=== PATIENT | female | born 1980 | race Caucasian/White ===

== ENCOUNTER 2016-09-10 11:03 | Emergency (ER) | payer BC, SELFPAY ==
[~2016-09-10 11:03] MED LIST: /ACETCOD2T PO; ACET50TA PO; BUSP10TA PO; CIPR500T89 PO; CITA40TA PO; CRANPOW2 PO; FLAG500T PO; FLUC10TA PO; IMIT50TA PO; KEPP500T6 PO; MICO PV; MICO2CRE39 EXT; MICO7CR PV; MIRA3350 PO; MULTCAP PO; NEUR600T PO; OXYC1SOL PO; PRIL20CA PO; SIME80TA PO; WELL100T PO; ZOFR4TAB3 PO
--- NOTE | 2016-09-10 11:45 | EDDOCDS ---
Nurse's Notes [facility] Name: Deidre Portillo Age: 36 yrs Sex: Female : 1980 Arrival Date: 09/10/2016 Time: 11:03 Bed Triage 1 Private MD: Other - Complete Info On Cds Diagnosis: Tinea corporis-under bilateral breasts Presentation: 09/10 11:09 Presenting complaint: Patient states: I have shingles again, rash under both breasts, cjh burning and pain. Adult Sepsis Screening: The patient does not have new or worsening altered mentation. Patient's respiratory rate is less than 22. Systolic blood pressure is greater than 100. Patient has a qSOFA score of 0- Negative Sepsis Screen. Suicide/Homicide risk assessment- the patient denies having any suicidal and/or homicidal ideations and does not present with any other emotional, behavioral or mental health complaints. 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 Transition of care: patient was not received from another setting of care. 11:09 Acuity: DELON Level 4 [facility] 11:09 Method Of Arrival: Walkin/Carried/Asstd [facility] Triage Assessment: 11:13 General: Appears uncomfortable, Behavior is anxious, cooperative. Pain: Location: [facility] diaphragm Pain currently is 7 out of 10 on a pain scale. HIV screening NA for this visit Offered previously. Respiratory: Airway is patent Respiratory effort is even, unlabored, Respiratory pattern is regular, symmetrical. Derm: Skin is pink, warm & dry. 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 BuSpar 10 mg Oral tab 1 tab 3 times per day 2. omeprazole 40 mg Oral cpDR 1 cap once daily 3. Zofran (as hydrochloride) 4 mg Oral tab 4 mg 4. Lamictal Unknown Oral 1 tab 2 times per day (Last dose: 09/10/2016 07:00) 5. unknown for depression Unknown nightly 6. amitriptyline 100 mg Oral tab 1 tab once daily 7. pregabalin 100 mg Oral cap 1 cap 3 times per day - PMHx: Cholecystitis; Chronic Functional Dyspepsia; Depression; Esophagitis; GERD; Migraine Headaches; - PSHx: Bunion Surgery; Hysterectomy; Tubes in ears; Appendectomy; Cholecystectomy; - Social history: Smoking status: Patient uses tobacco products, light tobacco smoker. No barriers to communication noted. - Family history: Not pertinent. - : The pt / caregiver states he / she is not on anticoagulants. Home medication list is obtained from the patient. - Exposure Risk Screening:: None identified. Screenin:14 Screening information is obtained from the patient. Fall risk: No risks identified. [facility] Assistance ADL's: requires no assistance with activities of daily living. Abuse/DV Screen: The patient / caregiver reports he/she is: not in a situation that causes fear, pain or injury. Nutritional screening: No deficits noted. Advance Directives: Currently, there is a health care proxy, Batool Velez, mother. There is no active DNR order. There is no living will. There is no Power of Medical Clerical Assistant. home support is adequate. Assessment: 11:42 General: Appears in no apparent distress, Behavior is cooperative. Neurological: Level jf3 of Consciousness is awake, alert, Oriented to person, place, time. Cardiovascular: Capillary refill < 3 seconds. Respiratory: Airway is patent Respiratory effort is even, unlabored, Respiratory pattern is regular, symmetrical. Derm: Reports rash under bilateral breats. Vital Signs: 11:06 BP 143 / 80 RA Sitting (auto/reg); Pulse 95 RA; Resp 18 S; Temp 97.9(O); Pulse Ox 100% nv4 on R/A; Weight 89.81 kg (R); Height 5 ft. 4 in. (162.56 cm) (R); Pain 7/10; 11:06 Body Mass Index 33.99 (89.81 kg, 162.56 cm) [facility] Vitals: 11:06 Log In Time: September 10, 2016 at 11:03. nv4 ED Course: 11:05 Patient visited by Franca Lam. [facility] 11:05 Patient moved to Waiting [facility] 11:06 Other - Complete Info On Cds is Private Physician. mt4 11:10 Triage Initiated [facility] 11:14 Patient moved to Triage 1 [facility] 11:24 [facility] 11:24 Steven Miguel MD is Attending Physician. [facility] 11:24 Patient visited by Mirtha Paulino PA-C. ef1 11:42 The patient / caregiver is instructed regarding the plan of care and ED course. jf3 11:42 No IV's were initiated during this patient's visit. No procedures done that require jf3 assistance. Order Results: There are currently no results for this order. Outcome: 11:35 Discharge ordered by Provider. ef1 11:42 Discharge Assessment: Patient awake, alert and oriented x 3. No cognitive and/or jf3 functional deficits noted. Patient verbalized understanding of disposition instructions. patient administered narcotics - no. The following High Risk Discharge criteria are identified: None. Discharged to home ambulatory. Condition: good. Discharge instructions given to patient, Instructed on discharge instructions, follow up and referral plans. medication usage, Demonstrated understanding of instructions, medications, Pt was receptive of discharge instructions/ teaching. No special radiology studies were completed. Property :Personal belongings accompany Pt. 11:44 Patient left the ED. jf3 Signatures: Franca Lam mt4 Mirtha Paulino PA-C PA-C ef1 Laila MarcialRN RN [facility] Gopi TsaiRN RN jf3 [facility]
--- NOTE | 2016-09-10 11:45 | EDDOCDS ---
Physician Documentation [facility] Name: Deidre Portillo Age: 36 yrs Sex: Female : 1980 Arrival Date: 09/10/2016 Time: 11:03 Bed Triage 1 Private MD: Jonny - Complete Info On Cds Disposition: 09/10/16 11:35 Discharged to Home/Self Care. Impression: Tinea corporis - under bilateral breasts. - Condition is Stable. - Discharge Instructions: Body Ringworm, Yeast Infection of the Skin, [id number]. - Prescriptions for Clotrimazole 1 % Topical Cream - apply to affected area 1 application by TOPICAL route every 12 hours for 14 days Apply under bilateral breasts.; 15 gram. - Medication Reconciliation, Local Pharmacy Hours form. - Follow up: Private Physician; When: 1 - 2 days; Reason: Recheck today's complaints, Continuance of care. Follow up: Emergency Department; Reason: Worsening of conditions. - Problem is new. - Symptoms are unchanged. Historical: - Allergies: Augmentin (Hives, Rash); NSAIDS (Upset stomach); Tramadol-Acetaminophen (Seizures); - Home Meds: 1. BuSpar 10 mg Oral tab 1 tab 3 times per day 2. omeprazole 40 mg Oral cpDR 1 cap once daily 3. Zofran (as hydrochloride) 4 mg Oral tab 4 mg 4. Lamictal Unknown Oral 1 tab 2 times per day (Last dose: 09/10/2016 07:00) 5. unknown for depression Unknown nightly 6. amitriptyline 100 mg Oral tab 1 tab once daily 7. pregabalin 100 mg Oral cap 1 cap 3 times per day - PMHx: Cholecystitis; Chronic Functional Dyspepsia; Depression; Esophagitis; GERD; Migraine Headaches; - PSHx: Bunion Surgery; Hysterectomy; Tubes in ears; Appendectomy; Cholecystectomy; - Social history: Smoking status: Patient uses tobacco products, light tobacco smoker. No barriers to communication noted. - Family history: Not pertinent. - : The pt / caregiver states he / she is not on anticoagulants. Home medication list is obtained from the patient. - Exposure Risk Screening:: None identified. 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 4 in. (162.56 cm) (R); Pain 02/27; 11:06 Body Mass Index 33.99 (89.81 kg, 162.56 cm) mt4 MDM: 11:41 Financial registration complete. Signatures: [place] Juarez, Reg Reg Mirtha Paulino PA-C PA-C ef1 Laila Marcial,RN RN cj Gopi Tsai,RN RN jf3 MTDD
--- NOTE | 2016-09-12 12:45 | EDDOCDS ---
Physician Documentation [facility] Name: Deidre Portillo Age: 36 yrs Sex: Female : 1980 Arrival Date: 09/10/2016 Time: 11:03 Bed Triage 1 Private MD: Jonny - Complete Info On Cds Disposition: 09/10/16 11:35 Discharged to Home/Self Care. Impression: Tinea corporis - under bilateral breasts. - Condition is Stable. - Discharge Instructions: Body Ringworm, Yeast Infection of the Skin, [id number]. - Prescriptions for Clotrimazole 1 % Topical Cream - apply to affected area 1 application by TOPICAL route every 12 hours for 14 days Apply under bilateral breasts.; 15 gram. - Medication Reconciliation, Local Pharmacy Hours form. - Follow up: Private Physician; When: 1 - 2 days; Reason: Recheck today's complaints, Continuance of care. Follow up: Emergency Department; Reason: Worsening of conditions. - Problem is new. - Symptoms are unchanged. Historical: - Allergies: Augmentin (Hives, Rash); NSAIDS (Upset stomach); Tramadol-Acetaminophen (Seizures); - Home Meds: 1. BuSpar 10 mg Oral tab 1 tab 3 times per day 2. omeprazole 40 mg Oral cpDR 1 cap once daily 3. Zofran (as hydrochloride) 4 mg Oral tab 4 mg 4. Lamictal Unknown Oral 1 tab 2 times per day (Last dose: 09/10/2016 07:00) 5. unknown for depression Unknown nightly 6. amitriptyline 100 mg Oral tab 1 tab once daily 7. pregabalin 100 mg Oral cap 1 cap 3 times per day - PMHx: Cholecystitis; Chronic Functional Dyspepsia; Depression; Esophagitis; GERD; Migraine Headaches; - PSHx: Bunion Surgery; Hysterectomy; Tubes in ears; Appendectomy; Cholecystectomy; - Social history: Smoking status: Patient uses tobacco products, light tobacco smoker. No barriers to communication noted. - Family history: Not pertinent. - : The pt / caregiver states he / she is not on anticoagulants. Home medication list is obtained from the patient. - Exposure Risk Screening:: None identified. 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 4 in. (162.56 cm) (R); Pain 7/10; 11:06 Body Mass Index 33.99 (89.81 kg, 162.56 cm) mt4 MDM: 11:41 Financial registration complete. lg 12:18 [facility] Payment Agreement was scanned into [employer] and attached to record. lg 14:46 T-Sheet-- Draft Copy was scanned into [employer] and attached to record. gb Signatures: Cheryl Nuno, Reg Reg gb [place] Juarez, Reg Reg lg Mirtha Paulino, ADALI BRO ef1 Laila Marcial,RN RN [facility] Gopi Tsai,RN RN jf3 The chart was reviewed and I authenticate all verbal orders and agree with the evaluation and treatment provided.Attachments: 12:18 [facility] Payment Agreement lg 14:46 T-Sheet-- Draft Copy gb Chart Complete MTDD
--- NOTE | 2016-09-12 12:45 | EDDOCDS ---
Nurse's Notes [facility] Name: Deidre Portillo Age: 36 yrs Sex: Female : 1980 Arrival Date: 09/10/2016 Time: 11:03 Bed Triage 1 Private MD: Other - Complete Info On Cds Diagnosis: Tinea corporis-under bilateral breasts Presentation: 09/10 11:09 Presenting complaint: Patient states: I have shingles again, rash under both breasts, cjh burning and pain. Adult Sepsis Screening: The patient does not have new or worsening altered mentation. Patient's respiratory rate is less than 22. Systolic blood pressure is greater than 100. Patient has a qSOFA score of 0- Negative Sepsis Screen. Suicide/Homicide risk assessment- the patient denies having any suicidal and/or homicidal ideations and does not present with any other emotional, behavioral or mental health complaints. 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 Transition of care: patient was not received from another setting of care. 11:09 Acuity: DELON Level 4 [facility] 11:09 Method Of Arrival: Walkin/Carried/Asstd [facility] Triage Assessment: 11:13 General: Appears uncomfortable, Behavior is anxious, cooperative. Pain: Location: [facility] diaphragm Pain currently is 7 out of 10 on a pain scale. HIV screening NA for this visit Offered previously. Respiratory: Airway is patent Respiratory effort is even, unlabored, Respiratory pattern is regular, symmetrical. Derm: Skin is pink, warm & dry. 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 BuSpar 10 mg Oral tab 1 tab 3 times per day 2. omeprazole 40 mg Oral cpDR 1 cap once daily 3. Zofran (as hydrochloride) 4 mg Oral tab 4 mg 4. Lamictal Unknown Oral 1 tab 2 times per day (Last dose: 09/10/2016 07:00) 5. unknown for depression Unknown nightly 6. amitriptyline 100 mg Oral tab 1 tab once daily 7. pregabalin 100 mg Oral cap 1 cap 3 times per day - PMHx: Cholecystitis; Chronic Functional Dyspepsia; Depression; Esophagitis; GERD; Migraine Headaches; - PSHx: Bunion Surgery; Hysterectomy; Tubes in ears; Appendectomy; Cholecystectomy; - Social history: Smoking status: Patient uses tobacco products, light tobacco smoker. No barriers to communication noted. - Family history: Not pertinent. - : The pt / caregiver states he / she is not on anticoagulants. Home medication list is obtained from the patient. - Exposure Risk Screening:: None identified. Screenin:14 Screening information is obtained from the patient. Fall risk: No risks identified. [facility] Assistance ADL's: requires no assistance with activities of daily living. Abuse/DV Screen: The patient / caregiver reports he/she is: not in a situation that causes fear, pain or injury. Nutritional screening: No deficits noted. Advance Directives: Currently, there is a health care proxy, Batool Velez, mother. There is no active DNR order. There is no living will. There is no Power of Chief Nursing Executive. home support is adequate. Assessment: 11:42 General: Appears in no apparent distress, Behavior is cooperative. Neurological: Level jf3 of Consciousness is awake, alert, Oriented to person, place, time. Cardiovascular: Capillary refill < 3 seconds. Respiratory: Airway is patent Respiratory effort is even, unlabored, Respiratory pattern is regular, symmetrical. Derm: Reports rash under bilateral breats. Vital Signs: 11:06 BP 143 / 80 RA Sitting (auto/reg); Pulse 95 RA; Resp 18 S; Temp 97.9(O); Pulse Ox 100% tx4 on R/A; Weight 89.81 kg (R); Height 5 ft. 4 in. (162.56 cm) (R); Pain 7/10; 11:06 Body Mass Index 33.99 (89.81 kg, 162.56 cm) [facility] Vitals: 11:06 Log In Time: September 10, 2016 at 11:03. tx4 ED Course: 11:05 Patient visited by Franca Lam. [facility] 11:05 Patient moved to Waiting [facility] 11:06 Other - Complete Info On Cds is Private Physician. mt4 11:10 Triage Initiated [facility] 11:14 Patient moved to Triage 1 [facility] 11:24 [facility] 11:24 Steven Miguel MD is Attending Physician. [facility] 11:24 Patient visited by Mirtha Paulino PA-C. ef1 11:42 The patient / caregiver is instructed regarding the plan of care and ED course. jf3 11:42 No IV's were initiated during this patient's visit. No procedures done that require jf3 assistance. 12:18 [facility] Payment Agreement was scanned into [employer] and attached to record. lg 14:46 T-Sheet-- Draft Copy was scanned into [employer] and attached to record. gb Order Results: There are currently no results for this order. Outcome: 11:35 Discharge ordered by Provider. ef1 11:42 Discharge Assessment: Patient awake, alert and oriented x 3. No cognitive and/or jf3 functional deficits noted. Patient verbalized understanding of disposition instructions. patient administered narcotics - no. The following High Risk Discharge criteria are identified: None. Discharged to home ambulatory. Condition: good. Discharge instructions given to patient, Instructed on discharge instructions, follow up and referral plans. medication usage, Demonstrated understanding of instructions, medications, Pt was receptive of discharge instructions/ teaching. No special radiology studies were completed. Property :Personal belongings accompany Pt. 11:44 Patient left the ED. jf3 Signatures: Cheryl Nuno, Reg Reg gb [place], Reg Reg lg [place], Franca mt4 Mirtha Paulino PA-C PA-C ef1 Laila Marcial,RN RN [facility] Gopi Tsai,RN RN jf3 Chart Complete MTDD
--- NOTE | 2016-09-12 12:45 | EDDOCDS ---
Physician Documentation [facility] Name: Deidre Portillo Age: 36 yrs Sex: Female : 1980 Arrival Date: 09/10/2016 Time: 11:03 Bed Triage 1 Private MD: Jonny - Complete Info On Cds Disposition: 09/10/16 11:35 Discharged to Home/Self Care. Impression: Tinea corporis - under bilateral breasts. - Condition is Stable. - Discharge Instructions: Body Ringworm, Yeast Infection of the Skin, [id number]. - Prescriptions for Clotrimazole 1 % Topical Cream - apply to affected area 1 application by TOPICAL route every 12 hours for 14 days Apply under bilateral breasts.; 15 gram. - Medication Reconciliation, Local Pharmacy Hours form. - Follow up: Private Physician; When: 1 - 2 days; Reason: Recheck today's complaints, Continuance of care. Follow up: Emergency Department; Reason: Worsening of conditions. - Problem is new. - Symptoms are unchanged. Historical: - Allergies: Augmentin (Hives, Rash); NSAIDS (Upset stomach); Tramadol-Acetaminophen (Seizures); - Home Meds: 1. BuSpar 10 mg Oral tab 1 tab 3 times per day 2. omeprazole 40 mg Oral cpDR 1 cap once daily 3. Zofran (as hydrochloride) 4 mg Oral tab 4 mg 4. Lamictal Unknown Oral 1 tab 2 times per day (Last dose: 09/10/2016 07:00) 5. unknown for depression Unknown nightly 6. amitriptyline 100 mg Oral tab 1 tab once daily 7. pregabalin 100 mg Oral cap 1 cap 3 times per day - PMHx: Cholecystitis; Chronic Functional Dyspepsia; Depression; Esophagitis; GERD; Migraine Headaches; - PSHx: Bunion Surgery; Hysterectomy; Tubes in ears; Appendectomy; Cholecystectomy; - Social history: Smoking status: Patient uses tobacco products, light tobacco smoker. No barriers to communication noted. - Family history: Not pertinent. - : The pt / caregiver states he / she is not on anticoagulants. Home medication list is obtained from the patient. - Exposure Risk Screening:: None identified. 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 4 in. (162.56 cm) (R); Pain 7/10; 11:06 Body Mass Index 33.99 (89.81 kg, 162.56 cm) mt4 MDM: 11:41 Financial registration complete. lg 12:18 [facility] Payment Agreement was scanned into [employer] and attached to record. lg 14:46 T-Sheet-- Draft Copy was scanned into [employer] and attached to record. gb Signatures: Cheryl Nuno, Reg Reg gb [place] Juarez, Reg Reg lg Mirtha Paulino, DAALI BRO ef1 Laila Marcial,RN RN [facility] Gopi Tsai,RN RN jf3 The chart was reviewed and I authenticate all verbal orders and agree with the evaluation and treatment provided.Attachments: 12:18 [facility] Payment Agreement lg 14:46 T-Sheet-- Draft Copy gb Chart Complete MTDD
== END 2016-09-10 11:44 | disposition home or self-care (01) ==
LOC: M ED 11:03
DX: B35.4 Tinea corporis (principal); K21.9 Gastro-esophageal reflux disease without esophagitis; G43.909 Migraine, unspecified, not intractable, without status migrainosus; K30 Functional dyspepsia; F32.9 Major depressive disorder, single episode, unspecified; Z87.19 Personal history of other diseases of the digestive system; Z79.899 Other long term (current) drug therapy; Z88.1 Allergy status to other antibiotic agents; Z88.5 Allergy status to narcotic agent; Z88.6 Allergy status to analgesic agent; F17.210 Nicotine dependence, cigarettes, uncomplicated

== ENCOUNTER 2016-11-08 15:08 | Emergency (ER) | payer BC, MEDICAID, SELFPAY ==
[~2016-11-08] VITALS: Ht 160 cm; Wt 88.5 kg
[2016-11-08] MEDS ORDERED: BACL10TA2 PO (15:21)
[2016-11-08] MEDS ORDERED: LAMO25TA2 (15:21)
[2016-11-08] MEDS ORDERED: DULO1CAP3 (15:21)
[2016-11-08] MEDS ORDERED: NORCO, ANEXSIA 5/325MG TABLET (HYDROcodone/ACETAMINOPHEN) PO ONE (19:00)
[2016-11-08] MEDS ORDERED: diazePAM 5 MG TAB PO ONE (19:00)
[2016-11-08 19:19] VITALS: BP 139/82
--- NOTE | 2016-11-08 19:24 | REP ---
Clinical: Pain. Status post seizure. Technique: Axial contrast enhanced images from the skull base to the thoracic inlet with coronal and sagittal re-formations. Findings: Straightening of normal lordosis may be secondary to positioning versus pain/spasm. Mild degenerative change at the C5-6 level includes subtle early anterior spurring and minimal disc space narrowing. The remainder of the examination is relatively normal for age. No acute fracture / compression injury or subluxation. Spinal canal is patent. Posterior elements and spinous processes are intact. The paravertebral soft tissues are normal. Impression: Straightening of normal lordosis and mild degenerative changes at the C5-6 level. Signed by Darnell Stevens MD 11/08/2016 07:15 P
--- NOTE | 2016-11-08 19:26 | REP ---
Clinical: Pain. Status post seizure. Technique: Axial noncontrast images from the mid T12 vertebral body to the proximal sacrum with coronal and sagittal re-formations. Findings: Alignment and lordosis maintained. No acute fracture / compression injury or subluxation. Disc spaces are maintained and normal for age. No significant degenerative changes are identified. Spinal canal is patent. Posterior elements and spinous processes are intact. Paravertebral soft tissues are normal. Incidental note is made of a 3 mm nonobstructing right renal calculus. Impression: 1. Normal lumbar spine. 2. 3 mm nonobstructing right renal calculus. Signed by Darnell Stevens MD 11/08/2016 07:17 P
[2016-11-08] MEDS ORDERED: SOMA350T PO (19:50)
[2016-11-08] MEDS ORDERED: CARISOPRODOL 350 MG TAB PO ONE (20:30)
== END 2016-11-08 20:35 | disposition home or self-care (01) ==
LOC: M ED 16:30
DX: S39.012A Strain of muscle, fascia and tendon of lower back, initial encounter (principal); S16.1XXA Strain of muscle, fascia and tendon at neck level, initial encounter; X58.XXXA Exposure to other specified factors, initial encounter; Y92.099 Unspecified place in other non-institutional residence as the place of occurrence of the external cause; Y93.89 Activity, other specified; Y99.9 Unspecified external cause status

== ENCOUNTER → 2017-03-22 | Outpatient (CLI) | payer OTHER ==
[~2017-03-22] MED LIST changes: +BACL10TA2 PO; +DULO1CAP3; +KEPP1TAB PO; -KEPP500T6 PO; +LAMO25TA2; +SOMA350T PO
--- NOTE | 2017-03-22 16:06 | REP ---
MRI LUMBAR SPINE WITHOUT CONTRAST: HISTORY: Radiculopathy. There is no disc bulge or herniation at the L1-2 through L3-4 and L5-S1 levels. The nerves exit the neural foramina without compression. A diffuse disc bulge is present at the L4-5 level. There is minimal compression of the thecal sac. There is hypertrophy of the posterior articulating facets. The L4 nerves exit the neural foramina without compression. The conus medullaris is normal in appearance terminating at the level of the T12 L1 intervertebral disc. Normal signal intensity is present in the lumbar intervertebral discs and vertebral bodies. IMPRESSION: Diffuse disc bulge at the L4-5 level with minimal thecal sac compression. Signed by Boone Verma MD 03/22/2017 04:17 P
== END ==
LOC: M RAD 14:17
PROVIDERS: ATTEND Pain Medicine Interventional Pain Medicine
DX: M47.817 Spondylosis without myelopathy or radiculopathy, lumbosacral region (principal); M54.16 Radiculopathy, lumbar region; M79.1 Myalgia; M46.1 Sacroiliitis, not elsewhere classified; M25.559 Pain in unspecified hip; M70.61 Trochanteric bursitis, right hip; Y93.89 Activity, other specified

== ENCOUNTER → 2017-06-16 | Outpatient (CLI) | payer OTHER ==
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
== END ==
LOC: M PAIN 14:30
PROVIDERS: ATTEND Anesthesiology
DX: M96.1 Postlaminectomy syndrome, not elsewhere classified (principal); M79.1 Myalgia; M54.5 Low back pain; G89.29 Other chronic pain; K21.9 Gastro-esophageal reflux disease without esophagitis; F17.210 Nicotine dependence, cigarettes, uncomplicated; R56.9 Unspecified convulsions; Z79.891 Long term (current) use of opiate analgesic; Z79.899 Other long term (current) drug therapy; Z85.41 Personal history of malignant neoplasm of cervix uteri; Z85.42 Personal history of malignant neoplasm of other parts of uterus

== ENCOUNTER 2017-09-12 12:29 | Emergency (ER) | payer OTHER ==
[2017-09-12] MEDS: ONDANSETRON 4MG/2ML VIAL (J2405) IV (12:58)
[2017-09-12] MEDS: MORPHINE 4 MG/ML 1ML SYRINGE IV ×2 (12:59→14:34)
[2017-09-12] MEDS: NS 1,000 ML IV (13:00)
[2017-09-12 13:03] LABS: BASO % 0.5 % (0.0-1.0); EOS # 0.4 10^3/uL (0.0-0.50); EOS % 4.2 % (0.0-3.0); HEMATOCRIT 41.4 % (36.0-47.0); HEMOGLOBIN 14.1 g/dl (12.0-16.0); IMMATURE GRANULOCYTE % 0.3 % (0-0); LYMPH # 2.3 10^3/uL (1.5-4.5); LYMPH % 26.6 % (24.0-44.0); MEAN CORPUSCULAR HEMOGLOBIN 32.8 pg (27.0-33.0); MEAN CORPUSCULAR HGB CONC 34.1 g/dl (32.0-36.5); MEAN CORPUSCULAR VOLUME 96.3 fl (80.0-96.0); MONO # 0.6 10^3/uL (0.0-0.8); MONO % 7.4 % (0.0-5.0); NEUTROPHILS # 5.3 10^3/uL (1.8-7.7); PLATELET COUNT, AUTOMATED 256 10^3/uL (150-450); WHITE BLOOD COUNT 8.6 10^3/uL (4.0-10.0)
[2017-09-12 13:14] LABS: INR 0.84; PROTHROMBIN TIME 11.5 SECONDS (12.4-14.5)
[2017-09-12 13:31] LABS: ALBUMIN/GLOBULIN RATIO 1.25 (1.00-1.93); ALKALINE PHOSPHATASE 58 U/L (45-117); ALT/SGPT 15 U/L (12-78); ANION GAP 9 MEQ/L (8-16); AST/SGOT 13 U/L (7-37); BILIRUBIN,DIRECT < 0.1 MG/DL (0.0-0.2); BILIRUBIN,TOTAL 0.2 MG/DL (0.2-1.0); BLOOD UREA NITROGEN 10 MG/DL (7-18); CALCIUM LEVEL 9.2 MG/DL (8.5-10.1); CARBON DIOXIDE LEVEL 25 MEQ/L (21-32); CHLORIDE LEVEL 106 MEQ/L (98-107); CREATININE FOR GFR 0.69 MG/DL (0.55-1.02); GLOMERULAR FILTRATION RATE > 60.0 (>60); GLUCOSE, FASTING 84 MG/DL (70-100); LIPASE 177 U/L (73-393); POTASSIUM SERUM 4.2 MEQ/L (3.5-5.1); SODIUM LEVEL 140 MEQ/L (136-145); TOTAL PROTEIN 7.2 GM/DL (6.4-8.2)
[2017-09-12] MEDS: diphenhydrAMINE INJ 50MG/ML VIAL (J1200) IV ×2 (13:35→14:34)
[2017-09-12 13:52] LABS: KETONE, URINE AUTO RFX NEGATIVE (NEGATIVE); LEUKOCYTE ESTERASE UR AUTO RFX NEGATIVE (NEGATIVE); NITRITE, URINE AUTO RFX NEGATIVE (NEGATIVE); RBC, URINE AUTO RFX 0 /HPF (0-3); SPECIFIC GRAVITY UR AUTO RFX 1.002 (1.002-1.035); SQUAM EPITHELIAL CELL UR AURFX 1 /HPF (0-6); WBC, URINE AUTO RFX 0 /HPF (0-3)
[2017-09-12] MEDS ORDERED: diphenhydrAMINE INJ 50MG/ML VIAL (J1200) IV (14:30)
== END 2017-09-12 15:44 | disposition home or self-care (01) ==
LOC: M ED 12:29
DX: K59.00 Constipation, unspecified (principal); Z90.710 Acquired absence of both cervix and uterus; Z87.891 Personal history of nicotine dependence
CPT/HCPCS: J1200

== ENCOUNTER → 2017-09-12 | Outpatient (CLI) | payer OTHER | LOC: M PAIN 11:00 | DX: M96.1 Postlaminectomy syndrome, not elsewhere classified (principal); M79.1 Myalgia; F17.210 Nicotine dependence, cigarettes, uncomplicated; Z79.899 Other long term (current) drug therapy; Z88.8 Allergy status to other drugs, medicaments and biological substances | CPT/HCPCS: G0463 ==

== ENCOUNTER → 2017-10-24 | Outpatient (CLI) | payer OTHER | LOC: M PAIN 13:45 | DX: M79.1 Myalgia (principal); M70.62 Trochanteric bursitis, left hip; M51.26 Other intervertebral disc displacement, lumbar region; F17.210 Nicotine dependence, cigarettes, uncomplicated; N60.19 Diffuse cystic mastopathy of unspecified breast; Z79.891 Long term (current) use of opiate analgesic; Z79.899 Other long term (current) drug therapy; Z85.41 Personal history of malignant neoplasm of cervix uteri; Z87.42 Personal history of other diseases of the female genital tract; Z88.8 Allergy status to other drugs, medicaments and biological substances | CPT/HCPCS: G0463 ==

== ENCOUNTER → 2018-05-21 | Outpatient (REF) | payer OTHER ==
[2018-05-21 18:50] LABS: APPEARANCE, URINE CLEAR (CLEAR); BACTERIA, URINE AUTO 1+ (NEGATIVE); BILIRUBIN, URINE AUTO NEGATIVE (NEGATIVE); BLOOD, URINE BLOOD NEGATIVE (NEGATIVE); COLOR, URINE YELLOW (YELLOW); GLUCOSE, URINE (UA) AUTO NEGATIVE (NEGATIVE); KETONE, URINE AUTO NEGATIVE (NEGATIVE); LEUKOCYTE ESTERASE, URINE AUTO NEGATIVE (NEGATIVE); MUCUS, URINE SMALL (NEGATIVE); NITRITE, URINE AUTO NEGATIVE (NEGATIVE); PROTEIN, URINE AUTO NEGATIVE (NEGATIVE); RBC, URINE AUTO 0 /HPF (0-3); SPECIFIC GRAVITY URINE AUTO 1.011 (1.002-1.035); SQUAMOUS EPITHELIAL CELL UR AU 2 /HPF (0-6); UROBILINOGEN, URINE AUTO 0.2 mg/dL (0.0-2.0); WBC, URINE AUTO 1 /HPF (0-3)
== END ==
LOC: M SMT 17:08
DX: R32 Unspecified urinary incontinence (principal)

== ENCOUNTER 2018-06-21 12:27 | Emergency (ER) | payer OTHER ==
[2018-06-21] MEDS: MORPHINE 4 MG/ML 1ML VIAL/SYRINGE (J2270) IM (14:13)
[2018-06-21] MEDS: PERCOCET 5MG/325MG TAB PO (15:11)
== END 2018-06-21 15:47 | disposition home or self-care (01) ==
LOC: M ED 12:27
DX: M54.5 Low back pain (principal); W18.2XXA Fall in (into) shower or empty bathtub, initial encounter; Y92.019 Unspecified place in single-family (private) house as the place of occurrence of the external cause
CPT/HCPCS: J2270

== ENCOUNTER 2018-07-10 11:17 | Emergency (ER) | payer OTHER, SELFPAY ==
[2018-07-10] MEDS: HYDROMORPHONE HCL 0.5 MG/ 0.5 ML SYRINGE (J1170 PER 1) IV (11:54)
[2018-07-10] MEDS: KETOROLAC 30 MG/ML VIAL (J1885) IV (13:13)
== END 2018-07-10 14:11 | disposition home or self-care (01) ==
LOC: M ED 11:17
DX: M54.42 Lumbago with sciatica, left side (principal); S13.4XXA Sprain of ligaments of cervical spine, initial encounter; M51.36 Other intervertebral disc degeneration, lumbar region; W19.XXXA Unspecified fall, initial encounter; Y92.098 Other place in other non-institutional residence as the place of occurrence of the external cause; F98.8 Other specified behavioral and emotional disorders with onset usually occurring in childhood and adolescence; F17.210 Nicotine dependence, cigarettes, uncomplicated; Z79.899 Other long term (current) drug therapy; Z88.0 Allergy status to penicillin; Z88.8 Allergy status to other drugs, medicaments and biological substances
CPT/HCPCS: J1885

== ENCOUNTER → 2018-08-29 | Outpatient (REF) | payer OTHER ==
[~2018-08-29] MED LIST changes: +CETI10TA; +CLON1TAB8; +ESTR25TD; -LAMO25TA2; +LAMO25TA4; +NORCOTAB PO; +NORT50CA; +OMEP40CA2; +PERC5TAB12 PO; +ZANTTAB; +ZOFR4TAB14 PO; -ZOFR4TAB3 PO; +[UNRECOGNIZED DRUG - CODE]
== END ==
LOC: M LABSMT 17:05
PROVIDERS: ATTEND Urology Pediatric Urology
DX: N39.3 Stress incontinence (female) (male) (principal); Z53.8 Procedure and treatment not carried out for other reasons

== ENCOUNTER 2018-10-06 14:24 | Emergency (ER) | payer OTHER ==
[2018-10-06] MEDS ORDERED: ANEXSIA, NORCO 7.5MG/325MG TABLET(HYDROCODONE/APAP) PO ONE (17:15)
[2018-10-06] MEDS ORDERED: METHOCARBAMOL 500 MG TAB PO ONE (17:15)
[2018-10-06] MEDS ORDERED: MORPHINE 4 MG/ML 1ML VIAL/SYRINGE (J2270) IV ONE (19:00)
[2018-10-06] MEDS ORDERED: ROBA500T PO (20:17)
[2018-10-06 20:26] VITALS: BP 171/110
[2018-10-06] MEDS ORDERED: OXYCODONE/APAP 5MG/325MG(BULK FOR ED) 1 TABLET PO ONE (20:30)
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
--- NOTE | 2018-10-07 07:20 | REP ---
CT CERVICAL SPINE WITHOUT CONTRAST: 10/06/2018. COMPARISON: 07/10/2018 CLINICAL HISTORY: Trauma. FINDINGS: Standard trauma protocol was utilized. C1 intact. Spinous processes, lamina, pedicles, facets, transverse processes, and the transverse foramina are intact throughout. The dens shows normal relationship to the lateral masses and anterior arch of C1, and it shows no fracture or focal lesion. Craniocervical and cervical-thoracic junction aligns normally. There is cervical spondylosis at C5-6 with small posterior osteophytes. These do not cause any significant spinal stenosis. Remainder of the neural canal shows no spondylosis, central canal stenosis, or foraminal stenosis. No prevertebral swelling. IMPRESSION: 1. There is no fracture, compression deformity, or malalignment in the cervical spine. Posterior elements intact. 2. Cervical spondylosis at C5-6, unchanged from prior studies. 3. No prevertebral swelling. Negative examination for acute finding. Electronically Signed by Kt Pinto MD 10/07/2018 08:20 A
--- NOTE | 2018-10-07 07:22 | REP ---
CT LUMBAR SPINE WITHOUT CONTRAST: 10/06/2018. CLINICAL HISTORY: Trauma. COMPARISON: CT 07/10/2018. TECHNIQUE. Trauma protocol with coronal and sagittal reconstructions. FINDINGS: Sagittal reconstructions show the lower half of T12 through S2 normal alignment is maintained. Vertebral body heights and the disc space heights are maintained. Spinous processes, lamina, facets, pedicles, and transverse processes are intact. Mild diffuse disc bulge at L5-S1 and L4-5. Other levels grossly intact. No paraspinal abnormality. Prior fixation screws through the left SI joint from the iliac bone into the sacrum. These are unchanged. IMPRESSION: 1. Mild disc bulge L4-5 and L5-S1 without central canal stenosis or foraminal encroachment. 2. No compression deformity or destructive lesion in the lumbar spine or its posterior elements. 3. Status post ORIF with multiple fixation screws from the left iliac bone into the left sacral ala. This is as on previous study. Nothing acute today. Electronically Signed by Kt Pinto MD 10/07/2018 08:21 A
--- NOTE | 2018-10-07 07:25 | REP ---
CT THORACIC SPINE WITHOUT CONTRAST: 10/06/2018. COMPARISON: Thoracic spine x-ray 06/21/2018. TECHNIQUE: Imaging from C7 through L1 midbodies with coronal and sagittal reconstructions provided. Axial soft-tissue and bone windows were provided. Normal gentle thoracic curve noted on the sagittal reconstructions. There is no abnormal kyphosis. There is no scoliosis. I see no compression deformity or destructive lesion. A few small marginal osteophytes are seen at T7-8 and T8-9 anteriorly. The posterior elements including spinous processes, lamina, facets, transverse processes, pedicles, and the posterior rib articulations are unremarkable. As on the fur comber view today and in June, there is elevation of the right diaphragm, chronic. There is dependent atelectasis bilaterally in the posterior lung sparks without effusion. No pneumothorax visible in the upper chest. IMPRESSION: 1. Minor thoracic spondylosis at T7-8 and T8-9 with small marginal osteophytes but no compression deformity, disc space narrowing, or destructive bone lesion. Central canal without stenosis, foramina adequate, and the posterior elements and posterior rib articulations normal. 2. Elevated left diaphragm as on previous studies and dependent atelectatic changes throughout mid and lower lung zones. No acute bony finding. Electronically Signed by Kt Pinto MD 10/07/2018 08:21 A
--- NOTE | 2018-10-07 09:36 | REP ---
LEFT SHOULDER, COMPLETE: 10/06/2018. CLINICAL HISTORY: Left shoulder pain. FINDINGS: Comparison studies, a PA chest 06/03/2010 showing a portion of shoulder. AC and glenohumeral joints grossly intact. There is no widening of the AC joint or elevation of the clavicle in relationship to the acromion. No clavicular or scapular fracture. Glenohumeral joint intact. No abnormal soft-tissue calcifications, subluxation, or dislocation. Ribs intact. IMPRESSION: 1. Negative left shoulder series. No fracture, subluxation, AC joint separation, or other acute finding. Electronically Signed by Kt Pinto MD 10/07/2018 11:30 A
== END 2018-10-06 20:46 | disposition home or self-care (01) ==
LOC: EDBD 14:24 → M ED 14:24
DX: S20.222A Contusion of left back wall of thorax, initial encounter (principal); M54.32 Sciatica, left side; M51.26 Other intervertebral disc displacement, lumbar region; M47.814 Spondylosis without myelopathy or radiculopathy, thoracic region; X58.XXXA Exposure to other specified factors, initial encounter; Y92.099 Unspecified place in other non-institutional residence as the place of occurrence of the external cause; Y93.01 Activity, walking, marching and hiking; Y99.9 Unspecified external cause status; M47.812 Spondylosis without myelopathy or radiculopathy, cervical region; M25.78 Osteophyte, vertebrae; M89.9 Disorder of bone, unspecified; G89.29 Other chronic pain; M54.9 Dorsalgia, unspecified; Z72.0 Tobacco use; Z79.899 Other long term (current) drug therapy; Z88.0 Allergy status to penicillin; Z88.6 Allergy status to analgesic agent; Z88.8 Allergy status to other drugs, medicaments and biological substances
CPT/HCPCS: 70450; 72125; 72128; 72131; 73030; 96374; 99284; J2270

== ENCOUNTER 2018-12-10 19:05 | Emergency (ER) | payer MEDICAID, OTHER ==
[~2018-12-10] VITALS: Ht 162.6 cm; Wt 65.9 kg
[~2018-12-10 19:05] MED LIST changes: -/ACETCOD2T PO; +ACET1TAB15 PO; -ACET50TA PO; +HYDR-3715 PO; +MAPA500T17 PO; -MICO PV; +MICO0.022 PV; +MICO1SUP2 PV; -MICO7CR PV; -NORCOTAB PO; +ROBA500T PO; +[UNRECOGNIZED DRUG - CODE]; -[UNRECOGNIZED DRUG - CODE]
[2018-12-10] MEDS ORDERED: KETOROLAC 30 MG/ML VIAL (J1885) IV ONE (20:30)
[2018-12-10] MEDS ORDERED: CYCLOBENZAPRINE 10 MG TAB PO ONE (20:30)
[2018-12-10 21:48] LABS: HEMATOCRIT 38.8 % (36.0-47.0); HEMOGLOBIN 12.9 g/dl (12.0-15.5); MEAN CORPUSCULAR HEMOGLOBIN 33.2 pg (27.0-33.0); MEAN CORPUSCULAR HGB CONC 33.2 g/dl (32.0-36.5); PLATELET COUNT, AUTOMATED 214 10^3/uL (150-450); RED BLOOD COUNT 3.88 10^6/uL (4.00-5.40); WHITE BLOOD COUNT 8.8 10^3/uL (4.0-10.0)
[2018-12-10 22:19] LABS: BLOOD UREA NITROGEN 10 MG/DL (7-18); CALCIUM LEVEL 8.4 MG/DL (8.5-10.1); CARBON DIOXIDE LEVEL 28 MEQ/L (21-32); CHLORIDE LEVEL 110 MEQ/L (98-107); CREATININE FOR GFR 0.73 MG/DL (0.55-1.30); GLOMERULAR FILTRATION RATE > 60.0 (>60); GLUCOSE, FASTING 95 MG/DL (70-100); POTASSIUM SERUM 3.9 MEQ/L (3.5-5.1); SODIUM LEVEL 141 MEQ/L (136-145)
[2018-12-10] MEDS ORDERED: DILUENT IV ONE (22:30)
[2018-12-10] MEDS ORDERED: NS 1,000 ML IV ONE (22:30)
[2018-12-10] MEDS ORDERED: KETAMINE IV ONE (22:30)
[2018-12-10] MEDS ORDERED: NACL IV ONE (22:30)
[2018-12-11] MEDS ORDERED: OXYCODONE/APAP 5MG/325MG(BULK FOR ED) 1 TABLET PO ONE (00:30)
[2018-12-11 01:02] VITALS: BP 107/68
--- NOTE | 2018-12-11 10:49 | REP ---
CT LUMBAR SPINE WITHOUT CONTRAST: HISTORY: Back pain. COMPARISON: 10/06/2018 The examination is available for review at 8:10 am 12/11/2018. There is no disc bulge or herniation at the L1-2 through L3-4 levels. The nerves exit the neural foramina without compression. A diffuse disc bulge is present at the L4-5 level. There is minimal compression of the thecal sac. The L4 nerves exit the neural foramina without compression. A diffuse disc bulge is present at the L5-S1 level. There is minimal compression of the thecal sac. The L5 nerves exit the neural foramina without compression. The intervertebral discs and vertebral bodies are normal in height. There is no subluxation. Fixation screws traverse the left sacroiliac joint. A calcification is present in the right kidney consistent with nephrolithiasis. The patient is status-post cholecystectomy. IMPRESSION: 1. Diffuse disc bulges at the L4-5 and L5-S1 levels with minimal thecal sac compression. 2. Right nephrolithiasis. There is no change compared to the previous study. Electronically Signed by Boone Verma MD 12/11/2018 10:53 A
== END 2018-12-11 01:04 | disposition home or self-care (01) ==
LOC: M ED 19:05
DX: M54.30 Sciatica, unspecified side (principal); G89.29 Other chronic pain; G43.909 Migraine, unspecified, not intractable, without status migrainosus; K21.9 Gastro-esophageal reflux disease without esophagitis; K58.9 Irritable bowel syndrome, unspecified; F17.200 Nicotine dependence, unspecified, uncomplicated
CPT/HCPCS: 72131; 80048; 85027; 96374; 96375; 99284; J1885

== ENCOUNTER → 2018-12-21 | Outpatient (REF) | payer MEDICAID ==
[2018-12-21 18:07] LABS: BLOOD UREA NITROGEN 7 MG/DL (7-18); C REACTIVE PROTEIN QUANTITATIV 2.57 MG/DL (0.00-0.30); CREATININE FOR GFR 0.76 MG/DL (0.55-1.30); GLOMERULAR FILTRATION RATE > 60.0 (>60)
[2018-12-26 14:11] LABS: HLA-B27 Negative (.)
== END ==
LOC: M LABDRAW1 17:08
PROVIDERS: ATTEND Physical Medicine & Rehabilitation
DX: M47.27 Other spondylosis with radiculopathy, lumbosacral region (principal)

== ENCOUNTER 2019-02-27 21:21 | Emergency (ER) | payer OTHER ==
[~2019-02-27] VITALS: Ht 160 cm; Wt 66.4 kg
[~2019-02-27 21:21] MED LIST changes: -DULO1CAP3; +DULO1CAP6; +ZANT150T40; -ZANTTAB
[2019-02-28] MEDS ORDERED: LIDOCAINE 5% (LIDODERM) PATCH TD ONE
[2019-02-28] MEDS ORDERED: CARI1TAB7 PO (00:04)
[2019-02-28] MEDS ORDERED: OMEP-218 PO (00:04)
[2019-02-28] MEDS ORDERED: CLON2TAB7 PO (00:04)
[2019-02-28] MEDS: MORPHINE 4 MG/ML 1ML VIAL/SYRINGE (J2270) SC ONE ×2 (00:30→00:44)
[2019-02-28 01:08] VITALS: BP 107/60
[2019-02-28] MEDS ORDERED: NORCO 5/325MG TABLET (BULK FOR ED) PO ONE (01:45)
[2019-02-28] MEDS ORDERED: **NOTE PATIENT COMMENT** MISC XX ONE (12:00)
== END 2019-02-28 01:53 | disposition home or self-care (01) ==
LOC: M ED 21:21
DX: M54.32 Sciatica, left side (principal); G89.29 Other chronic pain; M54.9 Dorsalgia, unspecified; F41.9 Anxiety disorder, unspecified; Z79.899 Other long term (current) drug therapy; Z88.6 Allergy status to analgesic agent; Z88.0 Allergy status to penicillin; Z88.8 Allergy status to other drugs, medicaments and biological substances
CPT/HCPCS: 99284; J2270

== ENCOUNTER 2019-07-15 15:16 | Emergency (ER) | payer OTHER ==
[~2019-07-15] VITALS: Ht 160 cm; Wt 60.9 kg
[~2019-07-15 15:16] MED LIST changes: +CARI1TAB7 PO; +CLON2TAB7 PO; +OMEP-218 PO; -OMEP40CA2; +OMEP40CA97
[2019-07-15] MEDS ORDERED: LAMO100T3 (15:26)
[2019-07-15] MEDS ORDERED: METH10CO PO (17:11)
[2019-07-15] MEDS ORDERED: NS 1,000 ML IV ONE (17:15)
[2019-07-15] MEDS ORDERED: ISOVUE-370 76% 100ML VIAL (Q9967) As Ordered ONE (17:39)
[2019-07-15 17:50] LABS: BASO % 0.5 % (0.0-1.0); EOS # 0.1 10^3/uL (0.0-0.5); EOS % 1.6 % (0.0-3.0); HEMOGLOBIN 14.3 g/dl (12.0-15.5); LYMPH % 36.1 % (24.0-44.0); MEAN CORPUSCULAR HEMOGLOBIN 31.6 pg (27.0-33.0); MEAN CORPUSCULAR HGB CONC 32.5 g/dl (32.0-36.5); MEAN CORPUSCULAR VOLUME 97.3 fl (80.0-96.0); MONO # 0.7 10^3/uL (0.0-0.8); MONO % 8.3 % (0.0-5.0); NEUTROPHILS # 4.4 10^3/uL (1.5-8.5); NEUTROPHILS % 53.1 % (36.0-66.0); PLATELET COUNT, AUTOMATED 219 10^3/uL (150-450); RED BLOOD COUNT 4.52 10^6/uL (4.00-5.40); WHITE BLOOD COUNT 8.2 10^3/uL (4.0-10.0)
[2019-07-15 18:01] LABS: C REACTIVE PROTEIN QUANTITATIV 1.02 MG/DL (0.00-0.30); MONO SCRN NEGATIVE (NEGATIVE)
--- NOTE | 2019-07-15 18:02 | REPVR ---
PROCEDURE INFORMATION: Exam: CT Neck With Contrast Exam date and time: 07/15/2019 5:11 PM Age: 39 years old Clinical history: Neck pain; Additional info: [place] lymph nodes, difficulty swallowing TECHNIQUE: Imaging protocol: Computed tomography images of the neck with intravenous contrast. Radiation optimization: All CT scans at this facility use at least one of these dose optimization techniques: automated exposure control; mA and/or kV adjustment per patient size (includes targeted exams where dose is matched to clinical indication); or iterative reconstruction. Contrast material: ISOVUE 370; Contrast volume: 75 ml; Contrast route: IV; COMPARISON: CT Spine,cervical w/o contrast 10/06/2018 2:28 PM FINDINGS: Nasopharynx: Unremarkable. Oropharynx: Widening of the tonsillar pillars bilaterally consistent with adenopathy with slight narrowing of the oropharyngeal airway. Hypopharynx: Unremarkable Larynx: Unremarkable. Normal epiglottis. Retropharyngeal space: Unremarkable. Submandibular/Parotid glands: Normal. Glands are normal in size. Thyroid: Normal. No enlarged or calcified nodules. Lymph nodes: Hypertrophy adenoidal soft tissues consistent with adenopathy. Trachea: Visualized trachea is unremarkable. Lungs: Unremarkable as visualized. Bones/joints: Unremarkable. No acute fracture. Soft tissues: Unremarkable. No significant soft tissue swelling. IMPRESSION: 1. Widening of the tonsillar pillars bilaterally consistent with adenopathy with slight narrowing of the oropharyngeal airway. 2. Hypertrophy adenoidal soft tissues consistent with adenopathy. Electronically signed by: Gene Child On 07/15/2019 18:01:57 PM
[2019-07-15 18:25] LABS: ERYTHROCYTE SEDIMENTATION RATE 11 mm/hr (0-20)
[2019-07-15 19:02] VITALS: BP 104/56
--- NOTE | 2019-07-16 16:06 | ED PDOC ---
Post-Departure Follow-Up dr esquivel faxed formal report of ct neck for fu Charles Nolen MD Jul 16, 2019 16:06
[2019-07-17 14:07] LABS: EBV AB TO NUCLEAR ANTIGEN <18.0 U/mL (0.0-17.9); EBV VIRAL CAPSID AG IgM <36.0 U/mL (0.0-35.9)
== END 2019-07-15 19:05 | disposition home or self-care (01) ==
LOC: M ED 15:16
DX: R59.1 Generalized enlarged lymph nodes (principal); J35.3 Hypertrophy of tonsils with hypertrophy of adenoids; F41.9 Anxiety disorder, unspecified; F43.10 Post-traumatic stress disorder, unspecified; G43.909 Migraine, unspecified, not intractable, without status migrainosus; K21.9 Gastro-esophageal reflux disease without esophagitis; Z79.899 Other long term (current) drug therapy; Z88.0 Allergy status to penicillin; Z88.8 Allergy status to other drugs, medicaments and biological substances; Z87.891 Personal history of nicotine dependence
CPT/HCPCS: 36415; 70491; 80047; 85025; 85652; 86140; 86308; 86663; 86664; 86665; 87880; 99284; Q9967